=== PATIENT | male | born 1975 | race Two or more races ===

== ENCOUNTER 2016-10-12 14:31 | Emergency (ER) | payer SELFPAY ==
[~2016-10-12] VITALS: Ht 157.5 cm; Wt 56.7 kg
[2016-10-12 14:50] VITALS: BP 108/72
--- NOTE | 2016-10-12 14:53 | Emergency Room Report ---
History of Present Illness General Chief Complaint: Seizure Source: Patient Present Illness HPI 41-year-old male, history of alcohol use, presenting with seizure. EMS reported generalized tonic-clonic seizures, however no other history able to be obtained. Patient is currently alert awake oriented x2, not obviously intoxicated, however does not remember any events of today. Patient states that he went to work in the morning, had "a few" bottles of beer after work. The patient states that he woke up in the hospital. Denies history of seizures. States that he drinks alcohol twice a week. Unknown head trauma. Currently denying any headache nausea vomiting, blurry vision, chest pain, shortness of breath, abdominal pain. Patient did bite his tongue on left side, denies any urinary or fecal incontinence. Allergies: Coded Allergies: No Known Allergies (Unverified , 10/12/16) Patient History Past Medical History: see triage record Past Surgical History: none Pertinent Family History: none Reviewed Nursing Documentation: PMH: Agreed, PSxH: Agreed Nursing Documentation-PMH Past Medical History: No History, Except For Review of Systems All Other Systems: negative except mentioned in HPI Physical Exam Vital Signs Date Time Temp Pulse Resp B/P (MAP) Pulse Ox O2 Delivery O2 Flow Rate FiO2 10/12/16 14:21 98.8 72 18 108/72 98 Room Air Sp02 EP Interpretation: reviewed, normal General Appearance: alert, non-toxic, other - Middle aged male, appears slightly disheveled, awake, alert, not clinically intoxicated, moving all extremities. Conversing appropriately Head: normocephalic, atraumatic - No hematoma or ecchymosis Eyes: bilateral eye normal inspection, bilateral eye PERRL, bilateral eye EOMI ENT: normal voice, moist mucus membranes, other - tongue bitten left side Neck: normal inspection, full range of motion, supple, no bony tend Respiratory: normal inspection, lungs clear, normal breath sounds, no respiratory distress, no retraction, no wheezing, speaking full sentences, chest symmetrical Cardiovascular #1: normal inspection, regular rate, rhythm, no edema, normal capillary refill Cardiovascular #2: 2+ radial (R), 2+ radial (L) Gastrointestinal: normal inspection, non tender, soft, non-distended, no guarding Genitourinary: no CVA tenderness Musculoskeletal: normal inspection, back normal, normal range of motion, non- tender Neurologic: normal inspection, alert, responsive, inspector of dredging III-XII nml as tested, motor strength/tone normal, sensory intact, normal gait, speech normal, other - Oriented to person and place, motor strength 5 out of 5 all extremities. Psychiatric: normal inspection Skin: normal inspection, normal color, no rash, warm/dry, well hydrated, normal turgor Medical Decision Making Diagnostic Impression: Primary Impression: Alcohol withdrawal Additional Impression: Seizure ER Course 41 yo alcohol abuse with seizure DDX: seizure Intracranial bleed, electrolyte disturbance, alcohol withdrawal, dehydration, arrhythmia Plan: Obtain labs, EKG, CXR, ct head ER course: Patient treated with Valium and Librium Patient has been monitored during ED stay, HD stable clinically sober, aox3, however still with slight tremors additional valium given no seizures in ED Disposition: Patient left AGAINST MEDICAL ADVICE. Patient is clinically sober, is free from from distracting injury, and has intact judgement and capacity to decide to leave against medical advice. Patient is Malian speaking, discussed risks for leaving AGAINST MEDICAL ADVICE with Malian-speaking revenue audit clerk nurse. Patient came in for seizure. I'm concerned for alcohol withdrawal and the fact that patient may have seizures again. Patient verbalized understanding of my concern and my need to admit patient for monitoring, but patient states "I feel fine and I want to leave ". I explained to patient the risks of leaving AMA and patient informed that if they leave, they could get worse, ould become become critically ill, possibly become disabled or . Patient verbalized back to me understanding of these risks but still wants to leave. Please note that this Emergency Department Report was dictated using [employer] rep[employer] technology software, occasionally this can lead to erroneous entry secondary to interpretation by the dictation equipment. Laboratory Tests Test 10/12/16 14:28 10/12/16 15:15 White Blood Count 6.5 K/UL (4.8-10.8) Red Blood Count 3.96 M/UL (4.70-6.10) L Hemoglobin 14.2 G/DL (14.2-18.0) Hematocrit 38.3 % (42.0-52.0) L Mean Corpuscular Volume 97 FL (80-99) Mean Corpuscular Hemoglobin 35.8 PG (27.0-31.0) H Mean Corpuscular Hemoglobin Concent 37.0 G/DL (32.0-36.0) H Red Cell Distribution Width 11.6 % (11.6-14.8) Platelet Count 151 K/UL (150-450) Mean Platelet Volume 7.6 FL (6.5-10.1) Neutrophils (%) (Auto) 79.4 % (45.0-75.0) H Lymphocytes (%) (Auto) 7.8 % (20.0-45.0) L Monocytes (%) (Auto) 11.4 % (1.0-10.0) H Eosinophils (%) (Auto) 0.1 % (0.0-3.0) Basophils (%) (Auto) 1.3 % (0.0-2.0) Sodium Level 131 mEQ/L (135-145) L Potassium Level 3.1 mEQ/L (3.4-4.9) L Chloride Level 87 mEQ/L (98-107) L Carbon Dioxide Level 26 mEQ/L (20-30) Anion Gap 18 (5-15) H Blood Urea Nitrogen 17 mg/dL (7-23) Creatinine 0.3 mg/dL (0.7-1.2) L Estimate Glomerular Filtration Rate > 60 mL/min (>60) Glucose Level 155 mg/dL (74-106) H Calcium Level 9.5 mg/dL (8.6-10.2) Total Bilirubin 1.7 mg/dL (0.0-1.2) H Direct Bilirubin 0.4 mg/dL (0.1-0.3) H Aspartate Amino Transferase (AST) 93 U/L (5-40) H Alanine Aminotransferase (ALT) 67 U/L (3-41) H Alkaline Phosphatase 87 U/L (40-129) Total Protein 7.6 g/dL (6.6-8.7) Albumin 4.8 g/dL (3.5-5.2) Globulin 2.8 g/dL Albumin/Globulin Ratio 1.7 (1.0-2.7) Serum Alcohol < 10 mg/dL Urine Color Yellow Urine Appearance Slightly cloudy Urine pH 6.5 (4.5-8.0) Urine Specific [place]mer 1.020 (1.005-1.035) Urine Protein 3+ (NEGATIVE) H Urine Glucose (UA) Negative (NEGATIVE) Urine Ketones 2+ (NEGATIVE) H Urine Occult Blood 5+ (NEGATIVE) H Urine Nitrite Negative (NEGATIVE) Urine Bilirubin 1+ (NEGATIVE) H Urine Ictotest Neg Urine Urobilinogen 8 MG/DL (0.0-1.0) H Urine Leukocyte Esterase 1+ (NEGATIVE) H Urine RBC 5-10 /HPF (0 - 0) H Urine WBC 5-10 /HPF (0 - 0) H Urine Squamous Epithelial Cells None /LPF (NONE/OCC) Urine Bacteria None /HPF (NONE) Urine Opiates Screen Negative (NEGATIVE) Urine Barbiturates Screen Negative (NEGATIVE) Phencyclidine (PCP) Screen Negative (NEGATIVE) Urine Amphetamines Screen Negative (NEGATIVE) Urine Benzodiazepines Screen Negative (NEGATIVE) Urine Cocaine Screen Negative (NEGATIVE) Urine Marijuana (THC) Screen Positive (NEGATIVE) H EKG Diagnostic Results Rate: normal Rhythm: NSR ST Segments: no acute changes ASA given to the pt in ED: No Rhythm Strip Diag. Results EP Interpretation: yes Rhythm: NSR, no PVC's, no ectopy Chest X-Ray Diagnostic Results Chest X-Ray Diagnostic Results : Chest X-Ray Ordered: Yes # of Views/Limited/Complete: 1 View Indication: Other EP Interpretation: Yes Interpretation: no consolidation, no effusion, no pneumothorax, no acute cardiopulmonary disease Impression: No acute disease Interpreting ER Provider: Electronically signed by Sterling Nelson MD CT/MRI/US Diagnostic Results CT/MRI/US Diagnostic Results : Imaging Test Ordered: CT head Impression CT HEAD: Comparison: None available No ICH, mass effect or edema. No evidence of acute cortical stroke. No skull fractures. Mild generalized atrophy for age. Visualized sinuses and mastoid air cells are clear. Last Vital Signs Date Time Temp Pulse Resp B/P (MAP) Pulse Ox O2 Delivery O2 Flow Rate FiO2 10/12/16 14:50 72 18 Room Air 10/12/16 14:21 98.8 108/72 98 Disposition: AGAINST MEDICAL ADVICE Condition: Improved Sterling Nelson M.D. Oct 12, 2016 14:53
[2016-10-12] MEDS ORDERED: chlordiazePOXIDE 25mg Cap ORAL ONE (15:00)
[2016-10-12 15:16] LABS: BASOPHILS % (AUTO) 1.3 % (0.0-2.0); EOSINOPHILS % (AUTO) 0.1 % (0.0-3.0); LYMPHOCYTES % (AUTO) 7.8 % (20.0-45.0); MEAN CORPUSCULAR HEMOGLOBIN 35.8 PG (27.0-31.0); MEAN CORPUSCULAR VOLUME 97 FL (80-99); MEAN PLATELET VOLUME 7.6 FL (6.5-10.1); MONOCYTES % (AUTO) 11.4 % (1.0-10.0); NEUTROPHILS % (AUTO) 79.4 % (45.0-75.0); PLATELET COUNT 151 K/UL (150-450); RED BLOOD COUNT 3.96 M/UL (4.70-6.10); RED CELL DISTRIBUTION WIDTH 11.6 % (11.6-14.8); WHITE BLOOD COUNT 6.5 K/UL (4.8-10.8)
[2016-10-12 15:37] LABS: ALANINE AMINOTRANSFERASE 67 U/L (3-41); ALBUMIN/GLOBULIN RATIO 1.7 (1.0-2.7); ANION GAP 18 (5-15); ASPARTATE AMINO TRANSFERASE 93 U/L (5-40); CALCIUM 9.5 mg/dL (8.6-10.2); CARBON DIOXIDE 26 mEQ/L (20-30); CHLORIDE 87 mEQ/L (98-107); CREATININE 0.3 mg/dL (0.7-1.2); GLOMERULAR FILTRATION RATE > 60 mL/min (>60); HEMOLYSIS 9; POTASSIUM 3.1 mEQ/L (3.4-4.9); SODIUM 131 mEQ/L (135-145); TOTAL PROTEIN 7.6 g/dL (6.6-8.7)
[2016-10-12 16:00] VITALS: BP 126/74
[2016-10-12 16:09] LABS: KETONES,URINE 2+ (NEGATIVE); LEUKOCYTE ESTERASE ,URINE 1+ (NEGATIVE); NITRITE,URINE NEGATIVE (NEGATIVE); PH,URINE 6.5 (4.5-8.0); PROTEIN,URINE 3+ (NEGATIVE); UROBILINOGEN,URINE 8 MG/DL (0.0-1.0)
[2016-10-12 16:10] LABS: APPEARANCE,URINE SLIGHTLY CLOUDY
[2016-10-12 16:19] LABS: ICTOTEST NEG
[2016-10-12 16:47] LABS: BILIRUBIN,DIRECT 0.4 mg/dL (0.1-0.3)
[2016-10-12 17:00] VITALS: BP 119/70
[2016-10-12 18:00] VITALS: BP 125/88
[2016-10-12 18:46] VITALS: BP 125/88
--- NOTE | 2016-10-13 10:52 | Diagnostic Imaging Report ---
Indication: Cough Technique: One view of the chest Comparison: none Findings: Lungs and pleural spaces are clear. Heart size is normal. Impression: No acute process This agrees with the preliminary interpretation provided overnight by [facility]. This agrees with the preliminary interpretation provided by the emergency room physician
--- NOTE | 2016-10-13 10:56 | Diagnostic Imaging Report ---
Indications: Altered mental status Technique: Spiral acquisitions obtained through the brain. Angled axial and coronal 5 x 5 mm slices were reconstructed. Total dose length product 1245 mGycm. CTDI vol(s) 70 mGy. Dose reduction achieved using automated exposure control Comparison: None Findings: There is enlargement of the extra-axial CSF spaces, advanced for age. Normal size ventricles. No acute intracranial hemorrhage or edema. No mass effect or midline shift. Normal vazquez-white differentiation. Intact calvarium. Visualized orbits and sinuses are unremarkable. Impression: Cerebral cortical volume loss, advanced for age Negative for acute intracranial bleed or mass effect This agrees with the preliminary interpretation provided overnight by [facility]. The CT scanner at [facility] is accredited by the [employer] and the scans are performed using protocols designed to limit radiation exposure to as low as reasonably achievable to attain images of sufficient resolution adequate for diagnostic evaluation.
--- NOTE | 2016-10-16 16:58 | Cardiology Report ---
APPROVED REPORT EKG Measurement Heart [id number] Normal sinus rhythm Normal ECG
== END 2016-10-12 18:50 | disposition left against medical advice (07) ==
LOC: EDBD 14:31 → EMR 15:28
DX: F10.239 Alcohol dependence with withdrawal, unspecified (principal); G40.409 Other generalized epilepsy and epileptic syndromes, not intractable, without status epilepticus
CPT/HCPCS: 36415; 70450; 71010; 80053; 80300; 81003; 82248; 82962; 85025; 93005; 96374; 96375; 99284; G0480; J3360; 80329; J8499